=== PATIENT | male | born 2000 | race Caucasian/White ===

== ENCOUNTER 2019-10-11 14:20 | Emergency (ER) | payer MEDICAID ==
[~2019-10-11] VITALS: Ht 182.9 cm; Wt 95.3 kg
--- NOTE | 2019-10-11 14:32 | Emergency Room Report ---
History of Present Illness General Chief Complaint: Sore Throat Source: Patient Present Illness HPI 19-year-old male with no symptom medical history here complaining of 4 days of a 10 out of 10 sore throat and bilateral tonsillar swelling. Denies any cough or congestion, shortness of breath, fever and chills, abdominal pain, nausea vomiting diarrhea. Reports that he has been straining the whole time for the past several weeks. Reports that he smokes marijuana on daily basis. Reports that about few weeks ago he started feeling irritation in the throat however the pain started 4 days ago. Has not taken medication for symptom relief. Sitting comfortably with stable vital signs, oxygenation and temperature within normal limits. Allergies: Coded Allergies: No Known Allergies (Unverified , 10/11/19) COVID-19 Screening Contact w/high risk pt: No Recent Travel to affected area: No Experienced COVID-19 symptoms?: No Patient History Past Medical History: see triage record Past Surgical History: none Pertinent Family History: none Social History: Reports: drug use - marijuana Immunizations: UTD Reviewed Nursing Documentation: PMH: Agreed; PSxH: Agreed Nursing Documentation-PMH Past Medical History: No History, Except For Hx Asthma: Yes Review of Systems All Other Systems: negative except mentioned in HPI Physical Exam Vital Signs Date Time Temp Pulse Resp B/P (MAP) Pulse Ox O2 Delivery O2 Flow Rate FiO2 10/11/19 14:13 98.1 75 18 127/58 (81) 99 Room Air Sp02 EP Interpretation: reviewed, normal General Appearance: no apparent distress, alert, GCS 15, non-toxic Head: normocephalic, atraumatic Eyes: bilateral eye normal inspection, bilateral eye PERRL ENT: tonsillar swelling, pharyngeal erythema, tonsillar exudate Neck: full range of motion, supple/symm/no masses Respiratory: lungs clear Cardiovascular #1: regular rate, rhythm, no edema Gastrointestinal: normal bowel sounds, non tender, soft, non-distended, no guarding, no rebound Genitourinary: no CVA tenderness Musculoskeletal: back normal Neurologic: alert, motor strength/tone normal, oriented x3, sensory intact, responsive, speech normal Psychiatric: judgement/insight normal, memory normal, mood/affect normal, no suicidal/homicidal ideation Skin: no rash Lymphatic: normal inspection Medical Decision Making PA Attestation All diagnoses and treatment plans were reviewed and discussed with my supervising physician Dr. Frederick Diagnostic Impression: Primary Impression: Tonsillitis with exudate Additional Impression: Strep pharyngitis ER Course 19-year-old male with no symptom medical history here complaining of 4 days of a 10 out of 10 sore throat and bilateral tonsillar swelling. Denies any cough or congestion, shortness of breath, fever and chills, abdominal pain, nausea vomiting diarrhea. Reports that he has been straining the whole time for the past several weeks. Reports that he smokes marijuana on daily basis. Reports that about few weeks ago he started feeling irritation in the throat however the pain started 4 days ago. Has not taken medication for symptom relief. Sitting comfortably with stable vital signs, oxygenation and temperature within normal limits. Ddx considered but are not limited to: strep pharyngitis, URI, tonsillitis, peritonsillar abscess, influenza Vital signs: are WNL, pt. is afebrile H&PE are most consistent with: Strep pharyngitis, tonsillitis with exudate ORDERS: Augmentin, prednisone ED INTERVENTIONS: None required at this time. DISCHARGE: At this time pt. is stable for d/c to home. Will provide printed patient care instructions, and any necessary prescriptions. Care plan and follow up instructions have been discussed with the patient prior to discharge. Take medication as directed, follow primary doctor, if worsening symptoms return to the emergency room Last Vital Signs Date Time Temp Pulse Resp B/P (MAP) Pulse Ox O2 Delivery O2 Flow Rate FiO2 10/11/19 14:13 98.1 75 18 127/58 (81) 99 Room Air Disposition: HOME, SELF-CARE Condition: Stable Scripts Prednisone* (PREDNISONE*) 20 Mg Tablet 40 MG ORAL DAILY for 5 Days, #10 TAB Prov: Erica Pro 10/11/19 Amoxicillin/Potassium Clav 875-125* (AUGMENTIN 875-125 TABLET*) 1 Each Tablet 1 TAB ORAL TWICE A DAY for 10 Days, #20 TAB Prov: Erica Pro 10/11/19 Patient Instructions: Strep Throat, Tonsillitis Additional Instructions: Take medication as directed, follow-up with your primary doctor, avoid drinking alcohol while taking prednisone, if worsening symptoms return to the emergency room Erica Pro October 11, 2019 14:32
[2019-10-11] MEDS ORDERED: AUGMENTIN 875-1 EAC1 ORAL (14:33)
[2019-10-11] MEDS ORDERED: PREDNISONE20 MG ORAL (14:33)
--- NOTE | 2019-10-11 14:45 | NUR ---
ER DISCHARGE NOTE: Patient is cleared to be discharged per ERMD, pt is aox4, on room air, with stable vital signs. pt was given dc and prescription instructions, pt was able to verbalize understanding. pt is able to ambulate with steady gait. pt took all belongings.
[2019-10-11 15:01] VITALS: BP 127/58
== END 2019-10-11 14:45 | disposition home or self-care (01) ==
LOC: EDBD 14:20 → EMR 14:25
DX: J03.90 Acute tonsillitis, unspecified (principal); J02.0 Streptococcal pharyngitis; F12.90 Cannabis use, unspecified, uncomplicated
CPT/HCPCS: 99282